=== PATIENT | female | born 1935 | race Caucasian/White ===

== ENCOUNTER → 2017-12-20 | Day surgery (SDC) | payer MEDICARE ==
[~2017-12-20] MED LIST: LIDOCAINE 1% PF 2 ML VIAL. ID; LIDOCAINE 2% 100 MG/5 ML SYRINGE.; MIDAZOLAM HCL/PF 2 MG/2 ML VIAL. IV; PROPOFOL 20 ML IV; fentaNYL PF VIAL 100 MCG/2 ML VIAL IV
[2017-12-20] MEDS: IV RINGERS,LACTATED 1000ML 1,000 ML IV (09:39)
== END | disposition home or self-care (01) ==
LOC: ENDOS 08:46
DX: K22.2 Esophageal obstruction (principal); K44.9 Diaphragmatic hernia without obstruction or gangrene; K29.50 Unspecified chronic gastritis without bleeding; Z88.8 Allergy status to other drugs, medicaments and biological substances; K21.9 Gastro-esophageal reflux disease without esophagitis; I25.2 Old myocardial infarction; M81.0 Age-related osteoporosis without current pathological fracture; Z85.828 Personal history of other malignant neoplasm of skin; E78.5 Hyperlipidemia, unspecified; M15.9 Polyosteoarthritis, unspecified; F41.9 Anxiety disorder, unspecified; E78.00 Pure hypercholesterolemia, unspecified; I11.9 Hypertensive heart disease without heart failure; Z83.3 Family history of diabetes mellitus; Z82.49 Family history of ischemic heart disease and other diseases of the circulatory system; Z80.1 Family history of malignant neoplasm of trachea, bronchus and lung; Z87.891 Personal history of nicotine dependence; Z79.82 Long term (current) use of aspirin; Z79.899 Other long term (current) drug therapy; Z90.710 Acquired absence of both cervix and uterus; Z98.890 Other specified postprocedural states; Z95.0 Presence of cardiac pacemaker
CPT/HCPCS: 43235; J2704

== ENCOUNTER → 2018-08-15 | Day surgery (SDC) | payer MEDICARE ==
[~2018-08-15] MED LIST changes: +ACET325T9 PO; +ALPR0.5T6 PO; +ASPI-630 PO; +BIMA2.5D EACHEYE; +BYSTOLIC5 MG PO; +CARV3.12 PO; +CHLO750T PO; +CITA40TA12 PO; +CRESTOR20 MG PO; +FERR325T14 PO; +HYDR-2761 PO; +HYDROmorphone 2 MG/ML VIAL IV PRN; +IV RINGERS,LACTATED 1000ML 1,000 ML IV SCH; -LIDOCAINE 1% PF 2 ML VIAL. ID; +LIDOCAINE 1% PF 2 ML VIAL. ID PRN; -LIDOCAINE 2% 100 MG/5 ML SYRINGE.; +LINA145C PO; +LISI-338 PO; -MIDAZOLAM HCL/PF 2 MG/2 ML VIAL. IV; +MORPHINE SULFATE 2 MG/ML VIAL. IV PRN; +NITR1PAT73 TD; +PHEN37.5 PO; +PRAV80TA PO; +PRAV80TA2 PO; +PROCHLORPERAZINE 10 MG/2 ML VIAL. IV PRN; -PROPOFOL 20 ML IV; +PROPOFOL 20 ML IV ONE; +SPIR1TAB PO; +TRAM50TA PO; -fentaNYL PF VIAL 100 MCG/2 ML VIAL IV; +fentaNYL PF VIAL 100 MCG/2 ML VIAL IV PRN
[2018-08-15 11:30] VITALS: BP 121/60
== END | disposition home or self-care (01) ==
LOC: ENDOS 09:35
PROVIDERS: ATTEND Internal Medicine Gastroenterology
DX: K57.30 Diverticulosis of large intestine without perforation or abscess without bleeding (principal); K64.0 First degree hemorrhoids; K22.2 Esophageal obstruction; K29.50 Unspecified chronic gastritis without bleeding; F41.9 Anxiety disorder, unspecified; E78.00 Pure hypercholesterolemia, unspecified; I11.9 Hypertensive heart disease without heart failure; I25.2 Old myocardial infarction; M15.9 Polyosteoarthritis, unspecified; Z88.2 Allergy status to sulfonamides; Z88.1 Allergy status to other antibiotic agents; Z88.6 Allergy status to analgesic agent; Z88.8 Allergy status to other drugs, medicaments and biological substances; M81.0 Age-related osteoporosis without current pathological fracture; Z85.828 Personal history of other malignant neoplasm of skin; Z82.49 Family history of ischemic heart disease and other diseases of the circulatory system; Z80.1 Family history of malignant neoplasm of trachea, bronchus and lung; Z83.3 Family history of diabetes mellitus; Z87.891 Personal history of nicotine dependence; Z79.899 Other long term (current) drug therapy; Z90.710 Acquired absence of both cervix and uterus; Z98.890 Other specified postprocedural states; Z95.0 Presence of cardiac pacemaker; Z95.5 Presence of coronary angioplasty implant and graft
CPT/HCPCS: 43235; 43450; 45378; J2704

== ENCOUNTER → 2020-03-02 | Outpatient (CLI) | payer MEDICARE ==
[2018-08-15 11:30] VITALS: BP 121/60
[~2020-03-02] MED LIST changes: -HYDROmorphone 2 MG/ML VIAL IV PRN; -IV RINGERS,LACTATED 1000ML 1,000 ML IV SCH; -LIDOCAINE 1% PF 2 ML VIAL. ID PRN; -LINA145C PO; +LINZESS145 MCG PO; -MORPHINE SULFATE 2 MG/ML VIAL. IV PRN; -PROCHLORPERAZINE 10 MG/2 ML VIAL. IV PRN; -PROPOFOL 20 ML IV ONE; -fentaNYL PF VIAL 100 MCG/2 ML VIAL IV PRN
[2020-03-02 09:52] LABS: CREATININE 1.2 mg/dL (0.6-1.0)
== END ==
LOC: CT 09:39
PROVIDERS: ATTEND Internal Medicine Gastroenterology
DX: M95.5 Acquired deformity of pelvis (principal); G12.8 Other spinal muscular atrophies and related syndromes
CPT/HCPCS: 36415; 82565; 84520

== ENCOUNTER 2020-03-07 06:52 | Outpatient (CLI) | payer MEDICARE ==
[~2020-03-07] VITALS: Ht 157.5 cm; Wt 63.5 kg
[2020-03-07] MEDS ORDERED: SODIUM BICARBONATE VIAL 150 MEQ in IV STERILE WATER 1,000 ML IV PRN (07:30)
[2020-03-07 07:32] VITALS: BP 111/65
[2020-03-07] MEDS ORDERED: IOHEXOL 350 MG/ML 100 ML VIAL. IV ONE (09:45)
[2020-03-07 11:00] VITALS: BP 118/60
[2020-03-07 12:17] VITALS: BP 104/61
--- NOTE | 2020-03-07 13:45 | NUR ---
Hydration complete. VSS. Left AC PIV DC'd. Pt home in private vehicle with family
--- NOTE | 2020-03-07 15:43 | RAD ---
CTA of the abdomen with contrast 03/07/2020 CLINICAL HISTORY: Abdominal pain. 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 TECHNIQUE: After the intravenous administration of 80 cc of Omnipaque 350, contiguous, 0.625 mm axial sections were obtained through the abdomen. 0.5 mm reconstructed axial and 3-D MIP sagittal and coronal along with volume rendered 3-D reconstructed images were obtained. One or more of the following individualized dose reduction techniques were utilized for this study: 1. Automated exposure control. 2. Adjustment of the mA and/or kV according to patient size. 3. Use of iterative reconstruction technique. FINDINGS: Comparison is made to the patient's abdominal ultrasound dated 02/12/2020. Images through the lung bases demonstrate minimal dependent subsegmental atelectasis bilaterally. There is mild cardiomegaly. A small to moderate-sized sliding hiatal hernia is noted. The liver parenchyma has a decreased attenuation consistent with fatty infiltration. The spleen, pancreas, adrenal glands and kidneys are within normal limits. The gallbladder is well-distended. No free fluid or free air is seen within the abdomen. Scattered diverticula are seen involving the colon. No inflammatory changes are seen in the adjacent fat. There is no evidence of bowel obstruction. The appendix is well-visualized and is within normal limits. CTA images demonstrate moderate scattered atherosclerotic plaque formation involving the abdominal aorta and its branches. The abdominal aorta is tortuous but tapers normally. Solitary renal arteries are seen bilaterally. There are patent. The common hepatic artery originates as a discrete branch from the aortic arch adjacent to the origin of the celiac trunk. This origin is patent. The celiac trunk is patent. The superior mesenteric artery is patent. No hemodynamically significant stenosis is seen. The inferior mesenteric artery is patent. Atherosclerotic calcification of the common iliac arteries and their branches is noted. No area of stenosis or occlusion is seen. Mild S-shaped curvature of the thoracolumbar spine is noted. Degenerative changes are seen involving the lower thoracic and throughout the lumbar spine. IMPRESSION: Moderate atherosclerotic plaque formation is seen involving the abdominal aorta and its branches. No hemodynamically significant stenosis or area of occlusion is seen. Electronically signed by: Juan Willis MD (03/07/2020 3:40 PM) [id number]
== END 2020-03-07 13:46 | disposition home or self-care (01) ==
LOC: CT 06:52
PROVIDERS: ATTEND Internal Medicine Gastroenterology
DX: I70.0 Atherosclerosis of aorta (principal)
CPT/HCPCS: 74175; Q9967